=== PATIENT | female | born 1995 | race American Indian/Alaskan Native ===

== ENCOUNTER 2021-07-01 19:38 | Emergency (ER) | payer SELFPAY ==
--- NOTE | 2021-07-01 20:01 | Emergency Department Report ---
ED Psych HPI - General Stated Complaint: BACK PAIN Time Seen by Provider: 07/01/21 19:48 Source: patient - History of Present Illness Initial Comments: Patient is 25 years old female brought [place] the emergency room [place] for mental health evaluation. Patient is reported missing. Patient stated that she has history of schizophrenia and she is not taking medication. She stated that she is hearing voices like music in her years. She also admitted visual hallucination. She denied any suicidal or homicidal ideation. Patient stated that she is homeless. MD Complaint: other - Related Data Allergies Allergy/AdvReac Type Severity Reaction Status Date / Time No Known Allergies Allergy Unverified 07/01/21 21:02 ED Review of Systems ROS: Stated complaint: BACK PAIN Other details as noted in HPI Comment: All other systems reviewed and negative Constitutional: denies: chills, fever Respiratory: denies: cough, shortness of breath, SOB with exertion, SOB at rest Cardiovascular: denies: chest pain, palpitations Gastrointestinal: denies: abdominal pain, nausea, vomiting, diarrhea, constipation, hematemesis, melena, hematochezia Musculoskeletal: denies: back pain Neurological: denies: headache, weakness, numbness, paresthesias, confusion, abnormal gait Psychiatric: auditory hallucinations, visual hallucinations. denies: depression, homicidal thoughts, suicidal thoughts ED Physical Exam - General General appearance: alert, in no apparent distress - Head Head exam: Present: atraumatic, normocephalic, normal inspection - Eye Eye exam: Present: normal appearance - ENT ENT exam: Present: normal exam, normal orophraynx, mucous membranes moist - Neck Neck exam: Present: normal inspection, full ROM. Absent: tenderness, meningismus - Respiratory Respiratory exam: Present: normal lung sounds bilaterally - Cardiovascular Cardiovascular Exam: Present: regular rate, normal rhythm, normal heart sounds - GI/Abdominal GI/Abdominal exam: Present: soft, normal bowel sounds. Absent: distended, tenderness, guarding, rebound, rigid, organomegaly, mass, bruit, pulsatile mass, hernia - Extremities Exam Extremities exam: Present: normal inspection, full ROM, normal capillary refill. Absent: tenderness - Back Exam Back exam: Present: normal inspection. Absent: CVA tenderness (R), CVA tenderness (L) - Neurological Exam Neurological exam: Present: alert, oriented X3, CN II-XII intact, normal gait, reflexes normal. Absent: motor sensory deficit - Psychiatric Psychiatric exam: Present: flat affect. Absent: homicidal ideation, suicidal ideation - Skin Skin exam: Present: warm, intact, normal color ED Course Vital Signs 07/01/21 21:54 Temperature 98.6 F Pulse Rate 82 Respiratory 20 Rate Blood Pressure 99/60 [Left] O2 Sat by Pulse 99 Oximetry ED Medical Decision Making - Lab Data Result diagrams: 07/01/21 20:39 07/01/21 20:39 - Medical Decision Making Patient is 25 years old female brought [place] the emergency room [place] for mental health evaluation. Patient is reported missing. Patient stated that she has history of schizophrenia and she is not taking medication. She stated that she is hearing voices like music in her years. She also admitted visual hallucination. She denied any suicidal or homicidal ideation. Patient stated that she is homeless. Labs reviewed and is unremarkable however UA and UDS is still pending. Patient is medically cleared to be evaluated by psych team. Critical care attestation.: If time is entered above; I have spent that time in minutes in the direct care of this critically ill patient, excluding procedure time. ED Disposition Clinical Impression: Acute psychosis Condition: Stable
[2021-07-01 20:54] LABS: Basophils % (Auto) 0.6 % (0.0-1.8); Hematocrit 33.8 % (30.3-42.9); Hemoglobin 10.9 gm/dl (10.1-14.3); Lymphocytes # (Auto) 1.4 K/mm3 (1.2-5.4); Lymphocytes % (Auto) 37.5 % (13.4-35.0); Mean Corpuscular HGB Conc 32 % (30-34); Mean Corpuscular Volume 94 fl (79-97); Monocytes # (Auto) 0.4 K/mm3 (0.0-0.8); Monocytes % (Auto) 11.2 % (0.0-7.3); Platelet Count 209 K/mm3 (140-440); Red Cell Distribution Width 14.5 % (13.2-15.2)
[2021-07-01 21:08] LABS: Blood Urea Nitrogen 10 mg/dL (7-17); Calcium 9.1 mg/dL (8.4-10.2); Hemolysis Index 7
[2021-07-01 21:15] LABS: BUN/Creatinine Ratio 14
--- NOTE | 2021-07-02 10:26 | Consultation ---
History of Present Illness - Reason for Consult Consult date: 07/02/21 Reason for consult: mental health evaluation - History of Present Psychiatric Illness Patient is 25 years old female brought [place] the emergency room [place] for mental health evaluation. Patient is reported missing. Patient stated that she has history of schizophrenia and she is not taking medication. She stated that she is hearing voices like music in her years. She also admi tted visual hallucination. She denied any suicidal or homicidal ideation. Patient stated that she is homeless. Jas Trivedi is a 25 year old female with history of schizophrenia. In my interview with the patient, she is calm and confused. She reports being noncompliant with psychotropic medications. The patient states she came to the ED because she is sick; she is a poor historian, unable to give detailed information. She endorses auditory and visual hallucinations. She denies suicidal/homicidal ideation. PAST PSYCHIATRIC HISTORY Diagnoses: Schizophrenia Suicide attempts or Self-harm behavior: Denies Prior psychiatric hospitalizations: Denies Substance Abuse history:Denies Previous psychiatric medications tried:Denies Outpatient treatment:Denies SOCIAL HISTORY Marital Status: Single Living Arrangements:Homeless Employment Status: unKnown Access to guns/weapons: Unknown Education:Unknown History of Abuse:Unknown Legal History: None reported REVIEW OF SYSTEMS Constitutional: Negative for weight loss ENT: Negative for stridor Respiratory: Negative for cough or hemoptysis All other systems reviewed and are negative MENTAL STATUS EXAMINATION General Appearance and Behavior: Age appropriate, dressed appropriately, calm and uncooperative Cooperation: cooperative Psychomotor Behavior: psychomotor normal Mood: "anxious" Affect and affective range: Constricted Thought Process: Blocking Thought Content: Impoverished Speech: Normal volume, Regular rate and rhythm, Intellectual Functioning: Average Suicidal Ideation: Denies Homicidal Ideation: Denies Hallucinations:Auditory/visual Delusions: None elicited Impulse Control: Unimpaired Insight and Judgment: limited insight and fair judgment, Memory: Normal Attention: divided Orientation: Alert, oriented Assessment and Plan (1) Schizophrenia (2) Treatment plan 1013 Start Zyprexa 10mg po daily Start Trazodone 50mg po QHS Risks, benefits and alternatives of medications discussed with the patient, questions answered and consent obtained from patient. PSYCHOTHERAPY: Supportive psychotherapy provided MEDICAL: Per primary team DELIRIUM PRECAUTIONS: Please re-orient patient frequently, keep lights on during the day, and minimize benzodiazepines and opiates as these medications could worsen patient's confusion. 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 Will follow. Thank you for the consult. Please contact with any questions and/or concerns. Case staffed with Dr. Chen Medications and Allergies Medications and Allergies Allergies Allergy/AdvReac Type Severity Reaction Status Date / Time No Known Allergies Allergy Unverified 07/01/21 21:02 Mental Status Exam - Vital signs Last Vital Signs Temp 98.9 F 07/02/21 01:38 Pulse 94 H 07/02/21 01:38 Resp 18 07/02/21 01:38 BP 119/79 07/02/21 01:38 Pulse Ox 96 07/02/21 01:38 Results Result Diagrams: 07/01/21 20:39 07/01/21 20:39 Abnormal lab results 07/01/21 07/01/21 07/01/21 Range/Units 20:39 20:39 20:39 WBC 3.8 L (4.5-11.0) K/mm3 RBC 3.60 L (3.65-5.03) M/mm3 Lymph % (Auto) 37.5 H (13.4-35.0) % [place] % (Auto) 11.2 H (0.0-7.3) % Salicylates < 0.3 L (2.8-20.0) mg/dL Acetaminophen 5.0 L (10.0-30.0) ug/mL All other labs normal.
--- NOTE | 2021-07-02 11:36 | Emergency Department Report ---
Blank Doc - Documentation Documentation: This patient came into the emergency department yesterday evening for a mental health evaluation. She has a history of schizophrenia and apparently also history of medication noncompliance. She was seen by the psychiatric team who feel the patient should be a 1013 and have inpatient stabilization. They have started the patient on Zyprexa and trazodone. Labs have been reviewed and are unremarkable including CBC, metabolic panel and blood alcohol level. We are still waiting for a urine sample for urinalysis and UDS. Patient's Covid test is currently on lab and waiting result. Vital signs have been reassuring throughout her ED course thus far. We will continue to push for a urine sample but otherwise the patient is medically cleared for psychiatric placement.
[2021-07-02 15:18] LABS: Bilirubin,Urine NEG (Negative); Blood,Urine NEG (Negative); Color,Urine Amber (Yellow); Mucus,Urine FEW /HPF; Protein,Urine <15 mg/dL mg/dL (Negative)
[2021-07-02 15:26] LABS: Amphetamine Screen,Urine Negative; Benzodiazepines Screen,Urine Negative; Cannabinoid Screen,Urine Negative; Cocaine Screen,Urine Negative; Methadone Screen,Urine Negative; Opiate Screen,Urine Negative
[2021-07-02] MEDS: traZODone 50 MG TAB PO SCH (22:30)
--- NOTE | 2021-07-03 11:18 | Progress Note ---
Subjective - Reason for Consult Consult date: 07/03/21 Reason for consult: psychosis - Chief Complaint Chief complaint: The patient was seen today. She is heard laughing and talking to herself, although she denies hallucinations when asked. She says she's been off her meds, but she did not recall what they were. The patient says she came to the hospital for "back pain and schizophrenia." She denies SI/HI. REVIEW OF SYSTEMS Constitutional: Negative for weight loss ENT: Negative for stridor Respiratory: Negative for cough or hemoptysis All other systems reviewed and are negative MENTAL STATUS EXAMINATION General Appearance and Behavior: Age appropriate, dressed appropriately, calm and uncooperative Cooperation: cooperative Psychomotor Behavior: psychomotor normal Mood: "okay" Affect and affective range: restricted Thought Process: responding to internal stimuli Thought Content: hallucinations Speech: Normal volume, Regular rate and rhythm Suicidal Ideation: Denies Homicidal Ideation: Denies Hallucinations: Auditory Delusions: None elicited Impulse Control: Unimpaired Insight and Judgment: limited insight and fair judgment, Memory: Limited Attention: divided Orientation: Alert, oriented Assessment and Plan (1) Schizophrenia Treatment plan 1013 Increase Zyprexa 15mg po daily Risks, benefits and alternatives of medications discussed with the patient, questions answered and consent obtained from patient. PSYCHOTHERAPY: Supportive psychotherapy provided MEDICAL: Per primary team DELIRIUM PRECAUTIONS: Please re-orient patient frequently, keep lights on during the day, and minimize benzodiazepines and opiates as these medications could worsen patient's confusion. 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 Will follow. Thank you for the consult. Please contact with any questions and/or concerns. Case staffed with Dr. Chen Mental Status Exam - Vital signs Last Vital Signs Temp 98.4 F 07/03/21 10:17 Pulse 99 H 07/03/21 10:17 Resp 16 07/03/21 10:17 BP 95/62 07/03/21 10:17 Pulse Ox 99 07/03/21 10:17
--- NOTE | 2021-07-03 13:59 | Event Note ---
Date: 07/03/21 25-year-old female here with acute psychosis. She was seen by my colleague and was medically cleared for psychiatric evaluation and placement. Vital signs reviewed and are stable. There have been no acute events overnight. Currently awaiting inpatient psychiatric facility placement.
[2021-07-03] MEDS: traZODone 50 MG TAB PO SCH (22:18)
[2021-07-04 09:29] VITALS: BP 107/72
--- NOTE | 2021-07-04 11:36 | Emergency Department Report ---
Blank Doc - Documentation Documentation: Chart reviewed 25-year-old female with schizophrenia on a 1030 Compliant with p.o. medication No events documented overnight Medically cleared as per lab results Vital signs normal Patient accepted [facility] and awaiting transport since last night
--- NOTE | 2021-07-04 11:50 | Progress Note ---
Subjective - Reason for Consult Consult date: 07/04/21 Reason for consult: psychosis - Chief Complaint Chief complaint: The patient was seen today. She is whispering and is almost inaudible. She appears to be preoccupied. Although she denies hallucinations, the patient appears to be responding to internal stimuli. She denies SI/HI. REVIEW OF SYSTEMS Constitutional: Negative for weight loss ENT: Negative for stridor Respiratory: Negative for cough or hemoptysis All other systems reviewed and are negative MENTAL STATUS EXAMINATION General Appearance and Behavior: Age appropriate, dressed appropriately, calm and uncooperative Cooperation: cooperative Psychomotor Behavior: psychomotor normal Mood: "okay" Affect and affective range: restricted Thought Process: responding to internal stimuli Thought Content: hallucinations Speech: Normal volume, Regular rate and rhythm Suicidal Ideation: Denies Homicidal Ideation: Denies Hallucinations: Auditory Delusions: None elicited Impulse Control: Unimpaired Insight and Judgment: limited insight and fair judgment, Memory: Limited Attention: divided Orientation: Alert, oriented Assessment and Plan (1) Schizophrenia Treatment plan 1013 Increase Zyprexa 20mg po daily Risks, benefits and alternatives of medications discussed with the patient, questions answered and consent obtained from patient. PSYCHOTHERAPY: Supportive psychotherapy provided MEDICAL: Per primary team DELIRIUM PRECAUTIONS: Please re-orient patient frequently, keep lights on during the day, and minimize benzodiazepines and opiates as these medications could worsen patient's confusion. 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 Will follow. Thank you for the consult. Please contact with any questions and/or concerns. Case staffed with Dr. Chen Mental Status Exam - Vital signs Last Vital Signs Temp 98.5 F 07/04/21 09:28 Pulse 92 H 07/04/21 09:28 Resp 18 07/04/21 09:28 BP 107/72 07/04/21 09:28 Pulse Ox 98 07/04/21 11:15
== END 2021-07-04 18:42 ==
LOC: ED 19:38
DX: F23 Brief psychotic disorder (principal); Z20.822 Contact with and (suspected) exposure to COVID-19; Z79.899 Other long term (current) drug therapy
CPT/HCPCS: 36415; 80048; 80307; 81001; 84703; 85025; 99285; U0003; 80320; G0480